=== PATIENT | female | born 1945 | race American Indian/Alaskan Native ===

== ENCOUNTER → 2017-06-21 | Outpatient (CLI) | payer MEDICARE, MEDICAID ==
[~2017-06-21] MED LIST: AMLODIPINE PO; INSU100V13 SQ; LORA10TA3 PO; METO50TA82 PO; OMEP-110 PO; RENAL VITAMIN PO; VITAMIN B12 PO
== END | disposition home or self-care (01) ==
LOC: PETCFH 09:16
PROVIDERS: ATTEND Physical Medicine & Rehabilitation Hospice and Palliative Medicine
DX: K30 Functional dyspepsia (principal); K21.9 Gastro-esophageal reflux disease without esophagitis; G89.29 Other chronic pain; R12 Heartburn; R13.19 Other dysphagia; F45.8 Other somatoform disorders; R63.4 Abnormal weight loss; I10 Essential (primary) hypertension; E11.9 Type 2 diabetes mellitus without complications; Z86.79 Personal history of other diseases of the circulatory system; Z88.8 Allergy status to other drugs, medicaments and biological substances
CPT/HCPCS: 78264; A9541

== ENCOUNTER → 2017-06-21 | Outpatient (CLI) | payer MEDICARE, MEDICAID | END | disposition home or self-care (01) | LOC: CFH 09:05 | PROVIDERS: ATTEND Physical Medicine & Rehabilitation Hospice and Palliative Medicine | DX: K83.8 Other specified diseases of biliary tract (principal); K31.89 Other diseases of stomach and duodenum | CPT/HCPCS: 74181 ==

== ENCOUNTER 2018-07-26 17:41 | Inpatient (IN) | payer MEDICAID, MEDICARE ==
[~2018-07-26] VITALS: Ht 160 cm; Wt 88.6 kg
[~2018-07-26 17:41] MED LIST changes: +ASCO500T5 PO; +ATOR10TA9 PO; +CHOL2000 PO; +FERR325T18 PO; +METO25TA35 PO; +SEVE800T8 PO
[2018-07-26] MEDS ORDERED: WARFARIN 2 MG TABLET PO-COUM ONE ×2 (18:00→23:30)
[2018-07-26] MEDS ORDERED: SODIUM CHLORIDE FLUSH 10ML SYR IVF ONE (18:30)
[2018-07-26 19:40] LABS: INTERNATIONAL NORMALIZED RATIO 1.51 (0.93-1.1); PROTHROMBIN TIME 15.6 Seconds (9.6-11.5)
[2018-07-26 19:42] LABS: ALBUMIN 1.8 g/dL (3.4-5.0); ANION GAP 13 mmol/L (5-15); CALCIUM 8.1 mg/dL (8.5-10.1); CHLORIDE 101 mmol/L (98-107)
[2018-07-26 19:49] LABS: ACETAMINOPHEN < 2 mcg/mL (10-30); ALANINE AMINOTRANSFERASE 21 U/L (12-78); ALKALINE PHOSPHATASE 158 U/L (45-117); BILIRUBIN,TOTAL 1.1 mg/dL (0.2-1.0); CREATININE 2.32 mg/dL (0.55-1.02); SALICYLATE LEVEL 2.1 mg/dL (2.8-20.0); TOTAL PROTEIN 6.1 g/dL (6.4-8.2); TROPONIN I < 0.015 ng/mL (0.000-0.045)
[2018-07-26 20:02] LABS: MEAN CORPUSCULAR HEMOGLOBIN 27.3 pg (27.0-34.8); MEAN CORPUSCULAR HGB CONC 31.9 g/dL (32.4-35.8); MEAN CORPUSCULAR VOLUME 85.6 fL (80-100); MEAN PLATELET VOLUME 8.7 fL (7.4-10.4); PLATELET COUNT 226 x10^3/uL (130-400); RED BLOOD COUNT 2.98 x10^6/uL (3.82-5.3); RED CELL DISTRIBUTION WIDTH 23.7 % (9.6-15.2)
[2018-07-26 20:04] LABS: MD YES
[2018-07-26 20:04] LABS: CULTURE INDICATED? YES; MICROSCOPIC INDICATED
[2018-07-26 20:19] LABS: MONOS% (MANUAL) 2 % (2-9)
[2018-07-26] MEDS ORDERED: CEFTRIAXONE PMX 1GM/50ML 50 ML ONE (20:21)
[2018-07-26 20:23] LABS: BANDS%(MANUAL) 2 % (0-7); LYMPHS% (MANUAL) 1 % (22-44); SEGS% (MANUAL) 95 % (42-75)
[2018-07-26 20:24] LABS: <PLATELET ESTIMATE> ADEQUATE; <PLT MORPHOLOGY> NORMAL PLT MORPH; ANISOCYTOSIS 1+; HYPOCHROMIA 1+
[2018-07-26] MEDS ORDERED: AMPICILLIN/SULBACTAM 3 GM IV ONE (20:30)
[2018-07-26] MEDS ORDERED: CEFTRIAXONE PMX 1GM/50ML 50 ML IVPB ONE (20:30)
[2018-07-26] MEDS ORDERED: VANCOMYCIN PER PHARMACY MC ONE (20:30)
[2018-07-26] MEDS ORDERED: SODIUM CHLORIDE 0.9% 1,000 ML IV SCH (20:47)
[2018-07-26] MEDS ORDERED: ACETAMINOPHEN 325 MG TABLET PO PRN (21:00)
[2018-07-26] MEDS ORDERED: POLYETHYLENE GLYCOL 17 GM PACKET PO PRN (21:00)
[2018-07-26] MEDS ORDERED: DEXTROSE 4 GM TAB.CHEW PO PRN (21:00)
[2018-07-26] MEDS ORDERED: DEXTROSE 50%, 50ML SYRINGE IVPush PRN (21:00)
[2018-07-26] MEDS ORDERED: VANCOMYCIN PER PHARMACY MC PRN (21:00)
[2018-07-26] MEDS ORDERED: DOCUSATE 100 MG CAPSULE PO PRN (21:00)
[2018-07-26] MEDS ORDERED: ONDANSETRON 2MG/ML, 2ML IVPush PRN (21:00)
[2018-07-26] MEDS ORDERED: GLUCAGON 1 MG IM PRN (21:00)
[2018-07-26] MEDS: INSULIN LISPRO 100 UNITS/ML, PEN SQ-INSULIN SCH (21:00)
[2018-07-26 21:15] VITALS: BP 92/54
[2018-07-26] MEDS: VANCOMYCIN 1,500 MG in SODIUM CHLORIDE 0.9% 250 ML IV ONE ×2 (21:55→22:06)
[2018-07-26] MEDS: SODIUM CHLORIDE FLUSH 10ML SYR IVF SCH (21:56)
[2018-07-26] MEDS ORDERED: PHARMACOKINETIC CONSULTATION MC ONE (22:30)
[2018-07-26] MEDS ORDERED: PHARMACOKINETIC MONITORING MC PRN (22:30)
[2018-07-26] MEDS: HYDROcodone/APAP 5/325 TABLET PO PRN (22:42)
[2018-07-26] MEDS: HEPARIN 5,000 UNITS/ML, 1ML SQ SCH (22:42)
[2018-07-26] MEDS: FERROUS SULFATE 325 MG TABLET PO SCH (22:42)
[2018-07-26] MEDS: FAMOTIDINE 20 MG TABLET PO SCH (22:42)
[2018-07-27 01:11] VITALS: BP 91/53
[2018-07-27] MEDS: HEPARIN 5,000 UNITS/ML, 1ML SQ SCH (05:22)
[2018-07-27 05:48] LABS: ANION GAP 15 mmol/L (5-15); CALCIUM 7.6 mg/dL (8.5-10.1); CHLORIDE 102 mmol/L (98-107); CREATININE 2.65 mg/dL (0.55-1.02)
[2018-07-27 05:49] LABS: INTERNATIONAL NORMALIZED RATIO 1.46 (0.93-1.1); PROTHROMBIN TIME 15.1 Seconds (9.6-11.5)
[2018-07-27 05:59] LABS: MEAN CORPUSCULAR HEMOGLOBIN 28.3 pg (27.0-34.8); MEAN CORPUSCULAR VOLUME 85.7 fL (80-100); PLATELET COUNT 197 x10^3/uL (130-400); RED CELL DISTRIBUTION WIDTH 22.7 % (9.6-15.2)
[2018-07-27 06:19] LABS: BASOPHILS # (AUTO) 0.02 x10^3/uL (0-0.1); BASOPHILS % (AUTO) 0 % (0-1); EOSINOPHILS # (AUTO) 0.04 x10^3/uL (0-0.4); EOSINOPHILS % (AUTO) 0 % (1-7); LYMPHOCYTES # (AUTO) 0.31 x10^3/uL (1-3.4); LYMPHOCYTES % (AUTO) 2 % (22-44); MD SCAN; MONOCYTES # (AUTO) 0.35 x10^3/uL (0.2-0.8); MONOCYTES % (AUTO) 2 % (2-9); NEUTROPHILS % (AUTO) 96 % (42-75)
[2018-07-27 06:28] LABS: CLOSTRIDIUM DIFFICILE TOXIN NEGATIVE (Negative)
[2018-07-27 06:29] LABS: CLOSTRIDIUM DIFFICILE ANTIGEN POSITIVE
[2018-07-27] MEDS: INSULIN LISPRO 100 UNITS/ML, PEN SQ-INSULIN SCH ×4 (07:00→20:44)
[2018-07-27 08:00] VITALS: BP 90/56
[2018-07-27] MEDS: SENNA/DOCUSATE TABLET PO SCH (09:00)
[2018-07-27] MEDS ORDERED: METOPROLOL TARTRATE 25 MG TABLET PO SCH (09:00)
[2018-07-27] MEDS: FERROUS SULFATE 325 MG TABLET PO SCH ×2 (09:04→17:35)
[2018-07-27] MEDS: SODIUM CHLORIDE FLUSH 10ML SYR IVF SCH ×2 (09:04→20:52)
[2018-07-27] MEDS: SEVELAMER CARBONATE 800MG TAB PO SCH ×3 (09:04→17:35)
[2018-07-27] MEDS: FAMOTIDINE 20 MG TABLET PO SCH ×2 (09:04→20:51)
[2018-07-27] MEDS ORDERED: METO50TA82 PO (12:15)
[2018-07-27] MEDS ORDERED: LORA10TA3 PO (12:15)
[2018-07-27] MEDS ORDERED: multivitamin (12:15)
[2018-07-27] MEDS ORDERED: OMEP-110 PO (12:15)
[2018-07-27] MEDS ORDERED: SEVE800T8 PO (12:15)
[2018-07-27] MEDS ORDERED: ATOR10TA9 PO (12:15)
[2018-07-27] MEDS ORDERED: AMLO5TAB7 PO (12:15)
[2018-07-27 13:03] VITALS: BP 96/57
[2018-07-27 13:24] VITALS: BP 96/57
[2018-07-27] MEDS: POTASSIUM CHLORIDE 20 MEQ in SODIUM CHLORIDE 0.45% 1,000 ML IV SCH ×2 (15:16→23:30)
[2018-07-27] MEDS ORDERED: WARFARIN 5 MG TABLET PO-COUM SCH (18:00)
[2018-07-27 20:13] VITALS: BP 92/53
[2018-07-27] MEDS: ATORVASTATIN 10 MG TABLET PO SCH (20:51)
[2018-07-27] MEDS: CEFTRIAXONE 1,000 MG in SODIUM CHLORIDE 0.9% 50 ML IV SCH (20:51)
[2018-07-27] MEDS ORDERED: CEFTRIAXONE PMX 1GM/50ML 50 ML IV SCH (21:00)
[2018-07-27 22:29] LABS: RED BLOOD COUNT 2.88 x10^6/uL (3.82-5.3)
[2018-07-27 23:25] LABS: ABSOLUTE RETICS # 0.033 x10^6/uL (0.5-2.5); RETICULOCYTE COUNT % 1.14 % (0.5-1.5)
[2018-07-28 01:40] VITALS: BP 93/56
[2018-07-28] MEDS: POTASSIUM CHLORIDE 20 MEQ in SODIUM CHLORIDE 0.45% 1,000 ML IV SCH ×2 (03:44→16:02)
[2018-07-28] MEDS: HYDROcodone/APAP 5/325 TABLET PO PRN ×3 (04:04→17:06)
[2018-07-28 05:49] LABS: MEAN CORPUSCULAR HEMOGLOBIN 27.4 pg (27.0-34.8); MEAN CORPUSCULAR HGB CONC 31.5 g/dL (32.4-35.8); MEAN CORPUSCULAR VOLUME 86.8 fL (80-100); MEAN PLATELET VOLUME 8.5 fL (7.4-10.4); PLATELET COUNT 175 x10^3/uL (130-400); RED BLOOD COUNT 2.75 x10^6/uL (3.82-5.3); RED CELL DISTRIBUTION WIDTH 23.5 % (9.6-15.2)
[2018-07-28 06:00] LABS: CHLORIDE 101 mmol/L (98-107)
[2018-07-28 06:13] LABS: ALANINE AMINOTRANSFERASE 16 U/L (12-78); ALBUMIN 1.5 g/dL (3.4-5.0); ALKALINE PHOSPHATASE 122 U/L (45-117); ANION GAP 11 mmol/L (5-15); BILIRUBIN,TOTAL 0.5 mg/dL (0.2-1.0); CALCIUM 7.5 mg/dL (8.5-10.1); CREATININE 3.46 mg/dL (0.55-1.02); TOTAL PROTEIN 5.7 g/dL (6.4-8.2)
[2018-07-28 06:38] LABS: BASOPHILS # (AUTO) 0.01 x10^3/uL (0-0.1); BASOPHILS % (AUTO) 0 % (0-1); EOSINOPHILS # (AUTO) 0.35 x10^3/uL (0-0.4); EOSINOPHILS % (AUTO) 3 % (1-7); LYMPHOCYTES % (AUTO) 3 % (22-44); MD SCAN; MONOCYTES # (AUTO) 0.41 x10^3/uL (0.2-0.8); MONOCYTES % (AUTO) 3 % (2-9); NEUTROPHILS # (AUTO) 12.76 x10^3/uL (1.8-6.8); NEUTROPHILS % (AUTO) 92 % (42-75)
[2018-07-28] MEDS: INSULIN LISPRO 100 UNITS/ML, PEN SQ-INSULIN SCH ×4 (07:00→20:07)
[2018-07-28 08:15] VITALS: BP 98/60
[2018-07-28 08:35] LABS: INTERNATIONAL NORMALIZED RATIO 3.11 (0.93-1.1); PROTHROMBIN TIME 31.6 Seconds (9.6-11.5)
[2018-07-28] MEDS: SENNA/DOCUSATE TABLET PO SCH (08:47)
[2018-07-28] MEDS: ASCORBIC ACID 500 MG TABLET PO SCH (09:01)
[2018-07-28] MEDS: SODIUM CHLORIDE FLUSH 10ML SYR IVF SCH ×2 (09:02→20:06)
[2018-07-28] MEDS: CHOLECALCIFEROL 1,000 UNIT TABLET PO SCH (09:02)
[2018-07-28] MEDS: FERROUS SULFATE 325 MG TABLET PO SCH ×2 (09:02→17:05)
[2018-07-28] MEDS: SEVELAMER CARBONATE 800MG TAB PO SCH ×3 (09:02→17:05)
[2018-07-28] MEDS: DARBEPOETIN 60 MCG/ML SQ SCH (11:00)
[2018-07-28 12:55] VITALS: BP 119/63
[2018-07-28] MEDS ORDERED: WARFARIN 1 MG TABLET PO-COUM SCH (18:00)
[2018-07-28 19:57] VITALS: BP 124/81
[2018-07-28] MEDS: morphine SULFATE 10 MG/ML, 1ML IVPush PRN (20:06)
[2018-07-28] MEDS: CEFTRIAXONE 1,000 MG in SODIUM CHLORIDE 0.9% 50 ML IV SCH (20:06)
[2018-07-28] MEDS: FAMOTIDINE 20 MG TABLET PO SCH (20:07)
[2018-07-28] MEDS: ATORVASTATIN 10 MG TABLET PO SCH (20:07)
[2018-07-29] MEDS: morphine SULFATE 10 MG/ML, 1ML IVPush PRN ×2 (00:24→04:05)
[2018-07-29] MEDS: POTASSIUM CHLORIDE 20 MEQ in SODIUM CHLORIDE 0.45% 1,000 ML IV SCH ×2 (01:34→12:32)
[2018-07-29 01:54] VITALS: BP 137/73
[2018-07-29] MEDS: HYDROcodone/APAP 5/325 TABLET PO PRN (03:58)
[2018-07-29 04:53] LABS: HCT (SEDRATE) 28.1 % (34.6-47.8)
[2018-07-29 04:55] LABS: MEAN CORPUSCULAR HEMOGLOBIN 27.5 pg (27.0-34.8); MEAN CORPUSCULAR HGB CONC 31.9 g/dL (32.4-35.8); MEAN CORPUSCULAR VOLUME 86.1 fL (80-100); MEAN PLATELET VOLUME 8.5 fL (7.4-10.4); PLATELET COUNT 198 x10^3/uL (130-400); RED CELL DISTRIBUTION WIDTH 23.4 % (9.6-15.2)
[2018-07-29 04:59] LABS: INTERNATIONAL NORMALIZED RATIO 4.45 (0.93-1.1); PROTHROMBIN TIME 44.9 Seconds (9.6-11.5)
[2018-07-29 05:54] LABS: CHLORIDE 98 mmol/L (98-107)
[2018-07-29 05:55] LABS: ALANINE AMINOTRANSFERASE 17 U/L (12-78); ANION GAP 10 mmol/L (5-15); BILIRUBIN,TOTAL 0.5 mg/dL (0.2-1.0); CALCIUM 7.9 mg/dL (8.5-10.1); CREATININE 2.26 mg/dL (0.55-1.02)
[2018-07-29 05:56] LABS: ALBUMIN 1.8 g/dL (3.4-5.0); ALKALINE PHOSPHATASE 137 U/L (45-117); TOTAL PROTEIN 6.5 g/dL (6.4-8.2)
[2018-07-29 06:34] LABS: MD YES
[2018-07-29 06:35] LABS: BAND#(MANUAL) 0.33 x10^3/uL; BANDS%(MANUAL) 2 % (0-7); SEG#(MANUAL) 16.27 x10^3/uL (1.8-6.8); SEGS% (MANUAL) 98 % (42-75)
[2018-07-29 06:36] LABS: <PLATELET ESTIMATE> ADEQUATE; <PLT MORPHOLOGY> NORMAL PLT MORPH; ANISOCYTOSIS 1+; HYPOCHROMIA 1+
[2018-07-29 07:15] VITALS: BP 114/64
[2018-07-29] MEDS: INSULIN LISPRO 100 UNITS/ML, PEN SQ-INSULIN SCH ×4 (08:46→21:50)
[2018-07-29] MEDS: FERROUS SULFATE 325 MG TABLET PO SCH ×2 (08:47→17:55)
[2018-07-29] MEDS: SODIUM CHLORIDE FLUSH 10ML SYR IVF SCH ×2 (08:48→21:46)
[2018-07-29] MEDS: SEVELAMER CARBONATE 800MG TAB PO SCH (08:48)
[2018-07-29] MEDS: SENNA/DOCUSATE TABLET PO SCH (08:48)
[2018-07-29] MEDS: ASCORBIC ACID 500 MG TABLET PO SCH (08:48)
[2018-07-29] MEDS: CHOLECALCIFEROL 1,000 UNIT TABLET PO SCH (08:48)
[2018-07-29 09:03] VITALS: BP 133/67
[2018-07-29 12:34] VITALS: BP 91/52
[2018-07-29] MEDS ORDERED: SODIUM CHLORIDE 0.9% 1,000 ML IV SCH (17:00)
[2018-07-29] MEDS: SODIUM CHLORIDE 0.9% 1,000 ML IV SCH (17:55)
[2018-07-29 19:42] VITALS: BP 110/65
[2018-07-29] MEDS: ATORVASTATIN 10 MG TABLET PO SCH (21:45)
[2018-07-29] MEDS: FAMOTIDINE 20 MG TABLET PO SCH (21:45)
[2018-07-29] MEDS: CEFTRIAXONE 1,000 MG in SODIUM CHLORIDE 0.9% 50 ML IV SCH (21:46)
[2018-07-30] MEDS: SODIUM CHLORIDE 0.9% 1,000 ML IV SCH ×2 (00:25→06:42)
[2018-07-30 03:07] VITALS: BP 124/70
[2018-07-30 05:10] LABS: MEAN CORPUSCULAR HEMOGLOBIN 27.3 pg (27.0-34.8); MEAN CORPUSCULAR HGB CONC 31.9 g/dL (32.4-35.8); MEAN CORPUSCULAR VOLUME 85.5 fL (80-100); MEAN PLATELET VOLUME 8.8 fL (7.4-10.4); PLATELET COUNT 184 x10^3/uL (130-400); RED BLOOD COUNT 2.89 x10^6/uL (3.82-5.3); RED CELL DISTRIBUTION WIDTH 24.3 % (9.6-15.2)
[2018-07-30 05:13] LABS: ALBUMIN 1.6 g/dL (3.4-5.0); ANION GAP 8 mmol/L (5-15); CALCIUM 7.4 mg/dL (8.5-10.1); CHLORIDE 100 mmol/L (98-107)
[2018-07-30 05:18] LABS: ALANINE AMINOTRANSFERASE 14 U/L (12-78); ALKALINE PHOSPHATASE 120 U/L (45-117); BILIRUBIN,TOTAL 0.5 mg/dL (0.2-1.0); CREATININE 2.91 mg/dL (0.55-1.02); INTERNATIONAL NORMALIZED RATIO 5.46 (0.93-1.1); PROTHROMBIN TIME 54.9 Seconds (9.6-11.5); TOTAL PROTEIN 5.9 g/dL (6.4-8.2)
[2018-07-30 06:18] LABS: BASOPHILS # (AUTO) 0.05 x10^3/uL (0-0.1); BASOPHILS % (AUTO) 0 % (0-1); EOSINOPHILS # (AUTO) 0.25 x10^3/uL (0-0.4); EOSINOPHILS % (AUTO) 2 % (1-7); LYMPHOCYTES # (AUTO) 0.35 x10^3/uL (1-3.4); LYMPHOCYTES % (AUTO) 3 % (22-44); MD SCAN; MONOCYTES # (AUTO) 0.29 x10^3/uL (0.2-0.8); MONOCYTES % (AUTO) 2 % (2-9); NEUTROPHILS # (AUTO) 11.41 x10^3/uL (1.8-6.8); NEUTROPHILS % (AUTO) 92 % (42-75)
[2018-07-30 06:58] VITALS: BP 121/70
[2018-07-30] MEDS: CHOLECALCIFEROL 1,000 UNIT TABLET PO SCH (08:38)
[2018-07-30] MEDS: INSULIN LISPRO 100 UNITS/ML, PEN SQ-INSULIN SCH ×4 (08:38→21:00)
[2018-07-30] MEDS: SENNA/DOCUSATE TABLET PO SCH (08:39)
[2018-07-30] MEDS: ASCORBIC ACID 500 MG TABLET PO SCH (08:39)
[2018-07-30] MEDS: FERROUS SULFATE 325 MG TABLET PO SCH ×2 (08:39→16:41)
[2018-07-30] MEDS: SODIUM CHLORIDE FLUSH 10ML SYR IVF SCH ×2 (08:40→21:32)
[2018-07-30 12:28] LABS: MEAN CORPUSCULAR HEMOGLOBIN 27.3 pg (27.0-34.8); MEAN CORPUSCULAR HGB CONC 31.8 g/dL (32.4-35.8); MEAN CORPUSCULAR VOLUME 85.7 fL (80-100); MEAN PLATELET VOLUME 8.6 fL (7.4-10.4); PLATELET COUNT 179 x10^3/uL (130-400); RED BLOOD COUNT 2.94 x10^6/uL (3.82-5.3); RED CELL DISTRIBUTION WIDTH 23.7 % (9.6-15.2)
[2018-07-30 13:00] LABS: BASOPHILS # (AUTO) 0.04 x10^3/uL (0-0.1); BASOPHILS % (AUTO) 0 % (0-1); EOSINOPHILS # (AUTO) 0.22 x10^3/uL (0-0.4); EOSINOPHILS % (AUTO) 2 % (1-7); LYMPHOCYTES % (AUTO) 3 % (22-44); MD SCAN; MONOCYTES # (AUTO) 0.35 x10^3/uL (0.2-0.8); MONOCYTES % (AUTO) 3 % (2-9); NEUTROPHILS # (AUTO) 12.29 x10^3/uL (1.8-6.8); NEUTROPHILS % (AUTO) 92 % (42-75)
[2018-07-30 15:37] VITALS: BP 126/70
[2018-07-30] MEDS ORDERED: SODIUM CHLORIDE 0.9% 1,000 ML IV SCH (17:06)
[2018-07-30 18:59] VITALS: BP 124/66
[2018-07-30] MEDS: FAMOTIDINE 20 MG TABLET PO SCH (21:32)
[2018-07-30] MEDS: CEFTRIAXONE 1,000 MG in SODIUM CHLORIDE 0.9% 50 ML IV SCH (21:32)
[2018-07-30] MEDS: ATORVASTATIN 10 MG TABLET PO SCH (21:32)
[2018-07-30] MEDS: HYDROcodone/APAP 5/325 TABLET PO PRN (21:40)
[2018-07-31 01:17] VITALS: BP 118/69
[2018-07-31 06:04] LABS: ALANINE AMINOTRANSFERASE 13 U/L (12-78); ALBUMIN 1.4 g/dL (3.4-5.0); ANION GAP 11 mmol/L (5-15); CALCIUM 7.5 mg/dL (8.5-10.1); CHLORIDE 102 mmol/L (98-107); CREATININE 3.44 mg/dL (0.55-1.02)
[2018-07-31 06:06] LABS: ALKALINE PHOSPHATASE 122 U/L (45-117); BILIRUBIN,TOTAL 0.4 mg/dL (0.2-1.0); TOTAL PROTEIN 5.9 g/dL (6.4-8.2); VANCOMYCIN,RANDOM 11.4 mcg/mL
[2018-07-31 06:19] LABS: INTERNATIONAL NORMALIZED RATIO 5.67 (0.93-1.1)
[2018-07-31 06:31] LABS: MEAN CORPUSCULAR HGB CONC 31.4 g/dL (32.4-35.8); MEAN CORPUSCULAR VOLUME 85.9 fL (80-100); MEAN PLATELET VOLUME 9.1 fL (7.4-10.4); PLATELET COUNT 189 x10^3/uL (130-400); RED BLOOD COUNT 2.85 x10^6/uL (3.82-5.3)
[2018-07-31 07:11] LABS: BASOPHILS # (AUTO) 0.03 x10^3/uL (0-0.1); BASOPHILS % (AUTO) 0 % (0-1); EOSINOPHILS # (AUTO) 0.32 x10^3/uL (0-0.4); EOSINOPHILS % (AUTO) 3 % (1-7); LYMPHOCYTES # (AUTO) 0.41 x10^3/uL (1-3.4); LYMPHOCYTES % (AUTO) 4 % (22-44); MD SCAN; MONOCYTES # (AUTO) 0.44 x10^3/uL (0.2-0.8); MONOCYTES % (AUTO) 4 % (2-9); NEUTROPHILS # (AUTO) 9.25 x10^3/uL (1.8-6.8); NEUTROPHILS % (AUTO) 89 % (42-75)
[2018-07-31] MEDS: INSULIN LISPRO 100 UNITS/ML, PEN SQ-INSULIN SCH ×4 (07:27→21:00)
[2018-07-31 07:46] VITALS: BP 111/64
[2018-07-31] MEDS: SODIUM CHLORIDE FLUSH 10ML SYR IVF SCH ×2 (09:32→21:00)
[2018-07-31] MEDS ORDERED: VANCOMYCIN 1,500 MG in SODIUM CHLORIDE 0.9% 250 ML IV ONE (11:00)
[2018-07-31] MEDS: ASCORBIC ACID 500 MG TABLET PO SCH (12:44)
[2018-07-31] MEDS: SENNA/DOCUSATE TABLET PO SCH (12:44)
[2018-07-31] MEDS: VANCOMYCIN 50 MG/ML ORAL SUSP PO SCH ×3 (12:44→23:14)
[2018-07-31] MEDS: CHOLECALCIFEROL 1,000 UNIT TABLET PO SCH (12:45)
[2018-07-31] MEDS: FERROUS SULFATE 325 MG TABLET PO SCH ×2 (12:45→17:25)
[2018-07-31 13:43] VITALS: BP 118/65
[2018-07-31] MEDS: HYDROcodone/APAP 5/325 TABLET PO PRN (14:35)
[2018-07-31 20:33] VITALS: BP 91/51
[2018-07-31] MEDS: ATORVASTATIN 10 MG TABLET PO SCH (21:56)
[2018-07-31] MEDS: CEFTRIAXONE 1,000 MG in SODIUM CHLORIDE 0.9% 50 ML IV SCH (21:56)
[2018-07-31] MEDS: FAMOTIDINE 20 MG TABLET PO SCH (21:56)
[2018-08-01 01:42] VITALS: BP 110/64
[2018-08-01] MEDS: VANCOMYCIN 50 MG/ML ORAL SUSP PO SCH ×4 (05:13→22:35)
[2018-08-01] MEDS: HYDROcodone/APAP 5/325 TABLET PO PRN ×3 (05:19→22:35)
[2018-08-01 05:32] LABS: ALBUMIN 1.5 g/dL (3.4-5.0); ANION GAP 8 mmol/L (5-15); CALCIUM 7.5 mg/dL (8.5-10.1); CHLORIDE 102 mmol/L (98-107)
[2018-08-01 05:35] LABS: ALANINE AMINOTRANSFERASE 15 U/L (12-78); ALKALINE PHOSPHATASE 135 U/L (45-117); BILIRUBIN,TOTAL 0.4 mg/dL (0.2-1.0); CREATININE 2.95 mg/dL (0.55-1.02); MEAN CORPUSCULAR HEMOGLOBIN 27.2 pg (27.0-34.8); MEAN CORPUSCULAR HGB CONC 31.5 g/dL (32.4-35.8); MEAN CORPUSCULAR VOLUME 86.5 fL (80-100); MEAN PLATELET VOLUME 9.1 fL (7.4-10.4); PLATELET COUNT 197 x10^3/uL (130-400); RED BLOOD COUNT 2.91 x10^6/uL (3.82-5.3)
[2018-08-01 05:44] LABS: INTERNATIONAL NORMALIZED RATIO 6.14 (0.93-1.1); PROTHROMBIN TIME 61.6 Seconds (9.6-11.5)
[2018-08-01 06:20] LABS: BASOPHILS # (AUTO) 0.01 x10^3/uL (0-0.1); BASOPHILS % (AUTO) 0 % (0-1); EOSINOPHILS # (AUTO) 0.33 x10^3/uL (0-0.4); EOSINOPHILS % (AUTO) 3 % (1-7); LYMPHOCYTES # (AUTO) 0.45 x10^3/uL (1-3.4); LYMPHOCYTES % (AUTO) 4 % (22-44); MD SCAN; MONOCYTES # (AUTO) 0.43 x10^3/uL (0.2-0.8); MONOCYTES % (AUTO) 4 % (2-9); NEUTROPHILS # (AUTO) 9.67 x10^3/uL (1.8-6.8); NEUTROPHILS % (AUTO) 89 % (42-75)
[2018-08-01] MEDS: INSULIN LISPRO 100 UNITS/ML, PEN SQ-INSULIN SCH ×4 (07:00→21:32)
[2018-08-01 07:22] VITALS: BP 112/69
[2018-08-01] MEDS ORDERED: HOLD COUMADIN MC PRN (08:00)
[2018-08-01] MEDS: SENNA/DOCUSATE TABLET PO SCH (09:00)
[2018-08-01] MEDS: CHOLECALCIFEROL 1,000 UNIT TABLET PO SCH (09:00)
[2018-08-01] MEDS: ASCORBIC ACID 500 MG TABLET PO SCH (09:00)
[2018-08-01] MEDS: FERROUS SULFATE 325 MG TABLET PO SCH ×2 (09:01→17:53)
[2018-08-01] MEDS: SODIUM CHLORIDE FLUSH 10ML SYR IVF SCH ×2 (09:01→21:33)
[2018-08-01] MEDS: DRONABINOL 2.5 MG CAPSULE PO SCH ×2 (10:52→21:33)
[2018-08-01 13:35] VITALS: BP 119/74
[2018-08-01 21:18] VITALS: BP 97/58
[2018-08-01] MEDS: FAMOTIDINE 20 MG TABLET PO SCH (21:32)
[2018-08-01] MEDS: ATORVASTATIN 10 MG TABLET PO SCH (21:33)
[2018-08-01] MEDS: CEFTRIAXONE 1,000 MG in SODIUM CHLORIDE 0.9% 50 ML IV SCH (21:33)
[2018-08-02 02:07] VITALS: BP 105/62
[2018-08-02] MEDS: VANCOMYCIN 50 MG/ML ORAL SUSP PO SCH ×4 (05:18→22:51)
[2018-08-02 06:18] LABS: MEAN CORPUSCULAR HGB CONC 31.4 g/dL (32.4-35.8); MEAN PLATELET VOLUME 9.1 fL (7.4-10.4); PLATELET COUNT 186 x10^3/uL (130-400); RED CELL DISTRIBUTION WIDTH 23.6 % (9.6-15.2)
[2018-08-02 06:20] LABS: ANION GAP 8 mmol/L (5-15); CALCIUM 7.5 mg/dL (8.5-10.1); CHLORIDE 104 mmol/L (98-107)
[2018-08-02 06:22] LABS: CREATININE 3.95 mg/dL (0.55-1.02)
[2018-08-02 06:38] LABS: BASOPHILS % (AUTO) 0 % (0-1); EOSINOPHILS # (AUTO) 0.34 x10^3/uL (0-0.4); EOSINOPHILS % (AUTO) 3 % (1-7); LYMPHOCYTES # (AUTO) 0.55 x10^3/uL (1-3.4); LYMPHOCYTES % (AUTO) 5 % (22-44); MD SCAN; MONOCYTES # (AUTO) 0.53 x10^3/uL (0.2-0.8); MONOCYTES % (AUTO) 5 % (2-9); NEUTROPHILS # (AUTO) 9.97 x10^3/uL (1.8-6.8); NEUTROPHILS % (AUTO) 88 % (42-75)
[2018-08-02 06:49] LABS: INTERNATIONAL NORMALIZED RATIO 4.69 (0.93-1.1); PROTHROMBIN TIME 47.3 Seconds (9.6-11.5)
[2018-08-02 07:55] VITALS: BP 112/68
[2018-08-02] MEDS ORDERED: HOLD COUMADIN MC PRN (08:00)
[2018-08-02] MEDS: SENNA/DOCUSATE TABLET PO SCH (09:00)
[2018-08-02] MEDS: INSULIN LISPRO 100 UNITS/ML, PEN SQ-INSULIN SCH ×4 (09:07→20:50)
[2018-08-02] MEDS: DRONABINOL 2.5 MG CAPSULE PO SCH ×2 (09:08→20:49)
[2018-08-02] MEDS: CHOLECALCIFEROL 1,000 UNIT TABLET PO SCH (09:08)
[2018-08-02] MEDS: FERROUS SULFATE 325 MG TABLET PO SCH ×2 (09:08→17:45)
[2018-08-02] MEDS: SODIUM CHLORIDE FLUSH 10ML SYR IVF SCH ×2 (09:08→20:50)
[2018-08-02] MEDS: ASCORBIC ACID 500 MG TABLET PO SCH (09:08)
[2018-08-02] MEDS: HYDROcodone/APAP 5/325 TABLET PO PRN ×3 (09:08→22:51)
[2018-08-02] MEDS ORDERED: PHYTONADIONE 10 MG/ML, 1ML SQ ONE (14:00)
[2018-08-02 14:04] VITALS: BP 118/72
[2018-08-02 20:25] VITALS: BP 95/57
[2018-08-02] MEDS: FAMOTIDINE 20 MG TABLET PO SCH (20:49)
[2018-08-02] MEDS: ATORVASTATIN 10 MG TABLET PO SCH (20:49)
[2018-08-03 01:48] VITALS: BP 91/55
[2018-08-03] MEDS: VANCOMYCIN 50 MG/ML ORAL SUSP PO SCH ×3 (05:09→17:42)
[2018-08-03 06:07] LABS: INTERNATIONAL NORMALIZED RATIO 2.1 (0.93-1.1); PROTHROMBIN TIME 21.5 Seconds (9.6-11.5)
[2018-08-03 06:11] LABS: ANION GAP 7 mmol/L (5-15); CALCIUM 7.5 mg/dL (8.5-10.1); CHLORIDE 102 mmol/L (98-107); CREATININE 3.47 mg/dL (0.55-1.02)
[2018-08-03 06:18] LABS: MEAN CORPUSCULAR HEMOGLOBIN 26.4 pg (27.0-34.8); MEAN CORPUSCULAR HGB CONC 30.6 g/dL (32.4-35.8); MEAN CORPUSCULAR VOLUME 86.2 fL (80-100); MEAN PLATELET VOLUME 8.9 fL (7.4-10.4); PLATELET COUNT 181 x10^3/uL (130-400); RED BLOOD COUNT 2.73 x10^6/uL (3.82-5.3); RED CELL DISTRIBUTION WIDTH 23.7 % (9.6-15.2)
[2018-08-03 07:38] VITALS: BP 129/67
[2018-08-03 07:58] LABS: BASOPHILS # (AUTO) 0.03 x10^3/uL (0-0.1); BASOPHILS % (AUTO) 0 % (0-1); EOSINOPHILS # (AUTO) 0.29 x10^3/uL (0-0.4); EOSINOPHILS % (AUTO) 3 % (1-7); LYMPHOCYTES # (AUTO) 0.51 x10^3/uL (1-3.4); LYMPHOCYTES % (AUTO) 5 % (22-44); MD MORPH REVIEW ONLY; MONOCYTES # (AUTO) 0.43 x10^3/uL (0.2-0.8); MONOCYTES % (AUTO) 4 % (2-9); NEUTROPHILS # (AUTO) 9.89 x10^3/uL (1.8-6.8); NEUTROPHILS % (AUTO) 89 % (42-75)
[2018-08-03 08:17] LABS: ANISOCYTOSIS 1+
[2018-08-03 08:18] LABS: <PLATELET ESTIMATE> ADEQUATE; <PLT MORPHOLOGY> NORMAL PLT MORPH; HYPOCHROMIA 1+; MICROCYTOSIS 1+; OVALOCYTES 1+
[2018-08-03] MEDS ORDERED: LIDOCAINE-MPF 2%, 2ML ONE (08:54)
[2018-08-03] MEDS ORDERED: VISIPAQUE 270 MG/ML, 50ML BOTTLE ONE (09:00)
[2018-08-03] MEDS ORDERED: FENTANYL PF 100 MCG/2ML ONE (09:18)
[2018-08-03] MEDS ORDERED: MIDAZOLAM 1 MG/ML, 5ML ONE (09:18)
[2018-08-03] MEDS ORDERED: NALOXONE 1 MG/ML, 2ML ONE (09:19)
[2018-08-03] MEDS ORDERED: NITROGLYCERIN 5 MG/ML, 10ML ONE (09:19)
[2018-08-03] MEDS ORDERED: FLUMAZENIL 0.1 MG/1 ML, 5ML ONE (09:19)
[2018-08-03] MEDS ORDERED: PROTAMINE SULFATE 10 MG/ML, 25ML ONE (09:19)
[2018-08-03] MEDS ORDERED: HEPARIN 1,000 UNITS/ML, 10ML ONE (09:19)
[2018-08-03] MEDS: INSULIN LISPRO 100 UNITS/ML, PEN SQ-INSULIN SCH ×4 (09:20→22:11)
[2018-08-03] MEDS: SENNA/DOCUSATE TABLET PO SCH (09:21)
[2018-08-03] MEDS: FERROUS SULFATE 325 MG TABLET PO SCH ×2 (09:21→16:02)
[2018-08-03] MEDS: DRONABINOL 2.5 MG CAPSULE PO SCH ×2 (09:21→22:11)
[2018-08-03] MEDS: ASCORBIC ACID 500 MG TABLET PO SCH (12:55)
[2018-08-03] MEDS: CHOLECALCIFEROL 1,000 UNIT TABLET PO SCH (12:55)
[2018-08-03] MEDS: SODIUM CHLORIDE FLUSH 10ML SYR IVF SCH ×2 (13:00→22:11)
[2018-08-03 13:39] VITALS: BP 110/62
[2018-08-03] MEDS: HYDROcodone/APAP 5/325 TABLET PO PRN (16:02)
[2018-08-03] MEDS ORDERED: WARFARIN 2 MG TABLET PO-COUM ONE (18:00)
[2018-08-03] MEDS ORDERED: VANCOMYCIN 1,500 MG in SODIUM CHLORIDE 0.9% 250 ML IV SCH (18:30)
[2018-08-03] MEDS ORDERED: [UNRECOGNIZED DRUG - REMARK] MC PRN (19:00)
[2018-08-03 20:56] VITALS: BP 93/51
[2018-08-03] MEDS: DARBEPOETIN 60 MCG/ML SQ SCH (22:10)
[2018-08-03] MEDS: FAMOTIDINE 20 MG TABLET PO SCH (22:11)
[2018-08-03] MEDS: ATORVASTATIN 10 MG TABLET PO SCH (22:11)
[2018-08-04] MEDS: VANCOMYCIN 50 MG/ML ORAL SUSP PO SCH ×5 (00:01→23:45)
[2018-08-04 02:10] VITALS: BP 125/63
[2018-08-04 05:51] LABS: BASOPHILS # (AUTO) 0.01 x10^3/uL (0-0.1); BASOPHILS % (AUTO) 0 % (0-1); EOSINOPHILS # (AUTO) 0.31 x10^3/uL (0-0.4); EOSINOPHILS % (AUTO) 4 % (1-7); LYMPHOCYTES # (AUTO) 0.42 x10^3/uL (1-3.4); LYMPHOCYTES % (AUTO) 5 % (22-44); MD NO; MEAN CORPUSCULAR HEMOGLOBIN 26.7 pg (27.0-34.8); MEAN CORPUSCULAR VOLUME 86.2 fL (80-100); MEAN PLATELET VOLUME 9.3 fL (7.4-10.4); MONOCYTES # (AUTO) 0.43 x10^3/uL (0.2-0.8); MONOCYTES % (AUTO) 5 % (2-9); NEUTROPHILS # (AUTO) 7.47 x10^3/uL (1.8-6.8); NEUTROPHILS % (AUTO) 87 % (42-75); PLATELET COUNT 195 x10^3/uL (130-400); RED CELL DISTRIBUTION WIDTH 24.4 % (9.6-15.2)
[2018-08-04 05:59] LABS: ANION GAP 9 mmol/L (5-15); CALCIUM 7.8 mg/dL (8.5-10.1); CHLORIDE 104 mmol/L (98-107)
[2018-08-04 06:03] LABS: INTERNATIONAL NORMALIZED RATIO 1.38 (0.93-1.1); PROTHROMBIN TIME 14.3 Seconds (9.6-11.5)
[2018-08-04 08:33] VITALS: BP 136/67
[2018-08-04] MEDS: INSULIN LISPRO 100 UNITS/ML, PEN SQ-INSULIN SCH ×4 (09:10→20:45)
[2018-08-04] MEDS: SODIUM CHLORIDE FLUSH 10ML SYR IVF SCH ×2 (09:10→20:47)
[2018-08-04] MEDS: CHOLECALCIFEROL 1,000 UNIT TABLET PO SCH (09:11)
[2018-08-04] MEDS: FERROUS SULFATE 325 MG TABLET PO SCH ×2 (09:11→18:23)
[2018-08-04] MEDS: ASCORBIC ACID 500 MG TABLET PO SCH (09:11)
[2018-08-04] MEDS: DRONABINOL 2.5 MG CAPSULE PO SCH ×2 (09:11→20:45)
[2018-08-04] MEDS: SENNA/DOCUSATE TABLET PO SCH (09:11)
[2018-08-04] MEDS: HYDROcodone/APAP 5/325 TABLET PO PRN (12:25)
[2018-08-04 14:32] VITALS: BP 119/61
[2018-08-04] MEDS ORDERED: WARFARIN 2 MG TABLET PO-COUM ONE (18:00)
[2018-08-04] MEDS: FAMOTIDINE 20 MG TABLET PO SCH (20:44)
[2018-08-04] MEDS: ATORVASTATIN 10 MG TABLET PO SCH (20:45)
[2018-08-04 21:01] VITALS: BP 112/64
[2018-08-05] VITALS (10 sets, daily range): BP systolic 93–143; BP diastolic 52–76
[2018-08-05 05:08] LABS: INTERNATIONAL NORMALIZED RATIO 1.56 (0.93-1.1); PROTHROMBIN TIME 16.1 Seconds (9.6-11.5)
[2018-08-05 05:13] LABS: ANION GAP 9 mmol/L (5-15); CALCIUM 7.7 mg/dL (8.5-10.1); CHLORIDE 104 mmol/L (98-107); CREATININE 3.23 mg/dL (0.55-1.02)
[2018-08-05 05:16] LABS: MEAN CORPUSCULAR HEMOGLOBIN 27.1 pg (27.0-34.8); MEAN CORPUSCULAR HGB CONC 31.5 g/dL (32.4-35.8); MEAN CORPUSCULAR VOLUME 85.8 fL (80-100); MEAN PLATELET VOLUME 9.5 fL (7.4-10.4); PLATELET COUNT 220 x10^3/uL (130-400); RED BLOOD COUNT 2.52 x10^6/uL (3.82-5.3); RED CELL DISTRIBUTION WIDTH 24.5 % (9.6-15.2)
[2018-08-05 05:44] LABS: BASOPHILS # (AUTO) 0.03 x10^3/uL (0-0.1); BASOPHILS % (AUTO) 0 % (0-1); EOSINOPHILS # (AUTO) 0.24 x10^3/uL (0-0.4); EOSINOPHILS % (AUTO) 2 % (1-7); LYMPHOCYTES # (AUTO) 0.41 x10^3/uL (1-3.4); LYMPHOCYTES % (AUTO) 4 % (22-44); MD SCAN; MONOCYTES # (AUTO) 0.42 x10^3/uL (0.2-0.8); MONOCYTES % (AUTO) 4 % (2-9); NEUTROPHILS # (AUTO) 8.57 x10^3/uL (1.8-6.8); NEUTROPHILS % (AUTO) 89 % (42-75)
[2018-08-05] MEDS: VANCOMYCIN 50 MG/ML ORAL SUSP PO SCH ×3 (06:37→17:03)
[2018-08-05] MEDS: HYDROcodone/APAP 5/325 TABLET PO PRN (07:04)
[2018-08-05] MEDS: DRONABINOL 2.5 MG CAPSULE PO SCH ×2 (09:04→20:57)
[2018-08-05] MEDS: CHOLECALCIFEROL 1,000 UNIT TABLET PO SCH (09:04)
[2018-08-05] MEDS: INSULIN LISPRO 100 UNITS/ML, PEN SQ-INSULIN SCH ×4 (09:04→20:56)
[2018-08-05] MEDS: FERROUS SULFATE 325 MG TABLET PO SCH ×2 (09:04→17:03)
[2018-08-05] MEDS: ASCORBIC ACID 500 MG TABLET PO SCH (09:04)
[2018-08-05] MEDS: SODIUM CHLORIDE FLUSH 10ML SYR IVF SCH ×2 (09:05→20:56)
[2018-08-05] MEDS: SENNA/DOCUSATE TABLET PO SCH (09:05)
[2018-08-05 16:25] LABS: OCCULT BLOOD NEGATIVE (NEGATIVE)
[2018-08-05] MEDS ORDERED: WARFARIN 2 MG TABLET PO-COUM ONE (18:00)
[2018-08-05] MEDS: FAMOTIDINE 20 MG TABLET PO SCH (20:57)
[2018-08-05] MEDS: ATORVASTATIN 10 MG TABLET PO SCH (20:57)
[2018-08-06] MEDS: VANCOMYCIN 50 MG/ML ORAL SUSP PO SCH ×5 (00:36→23:44)
[2018-08-06 00:54] VITALS: BP 110/50
[2018-08-06 01:02] LABS: OCCULT BLOOD POSITIVE (NEGATIVE)
[2018-08-06 06:07] LABS: MEAN CORPUSCULAR HEMOGLOBIN 27.6 pg (27.0-34.8); MEAN CORPUSCULAR HGB CONC 31.8 g/dL (32.4-35.8); MEAN CORPUSCULAR VOLUME 86.7 fL (80-100); PLATELET COUNT 227 x10^3/uL (130-400); RED BLOOD COUNT 2.63 x10^6/uL (3.82-5.3); RED CELL DISTRIBUTION WIDTH 23.7 % (9.6-15.2)
[2018-08-06 06:11] LABS: ANION GAP 9 mmol/L (5-15); CALCIUM 7.8 mg/dL (8.5-10.1); CHLORIDE 104 mmol/L (98-107)
[2018-08-06 06:12] LABS: ALBUMIN 1.6 g/dL (3.4-5.0); CREATININE 3.85 mg/dL (0.55-1.02)
[2018-08-06 06:17] LABS: INTERNATIONAL NORMALIZED RATIO 2.06 (0.93-1.1); PROTHROMBIN TIME 21.1 Seconds (9.6-11.5)
[2018-08-06 06:45] LABS: BASOPHILS # (AUTO) 0.03 x10^3/uL (0-0.1); BASOPHILS % (AUTO) 0 % (0-1); EOSINOPHILS # (AUTO) 0.24 x10^3/uL (0-0.4); EOSINOPHILS % (AUTO) 3 % (1-7); LYMPHOCYTES # (AUTO) 0.36 x10^3/uL (1-3.4); LYMPHOCYTES % (AUTO) 4 % (22-44); MD SCAN; MONOCYTES # (AUTO) 0.43 x10^3/uL (0.2-0.8); MONOCYTES % (AUTO) 5 % (2-9); NEUTROPHILS # (AUTO) 8.36 x10^3/uL (1.8-6.8); NEUTROPHILS % (AUTO) 89 % (42-75)
[2018-08-06 07:03] VITALS: BP 112/56
[2018-08-06] MEDS: SODIUM CHLORIDE FLUSH 10ML SYR IVF SCH ×2 (08:33→20:32)
[2018-08-06] MEDS: INSULIN LISPRO 100 UNITS/ML, PEN SQ-INSULIN SCH ×5 (08:34→20:34)
[2018-08-06] MEDS: ASCORBIC ACID 500 MG TABLET PO SCH (08:34)
[2018-08-06] MEDS: DRONABINOL 2.5 MG CAPSULE PO SCH ×2 (08:34→20:33)
[2018-08-06] MEDS: FERROUS SULFATE 325 MG TABLET PO SCH ×2 (08:34→17:25)
[2018-08-06] MEDS: SENNA/DOCUSATE TABLET PO SCH (08:34)
[2018-08-06] MEDS: CHOLECALCIFEROL 1,000 UNIT TABLET PO SCH (08:34)
[2018-08-06] MEDS: PANTOPRAZOLE 40 MG IV IVPush SCH ×2 (11:19→20:32)
[2018-08-06 12:28] VITALS: BP 115/63
[2018-08-06 15:21] LABS: OCCULT BLOOD POSITIVE (NEGATIVE)
[2018-08-06] MEDS ORDERED: WARFARIN 3 MG TABLET PO-COUM ONE (18:00)
[2018-08-06 20:18] VITALS: BP 107/65
[2018-08-06] MEDS: ATORVASTATIN 10 MG TABLET PO SCH (20:33)
[2018-08-07 01:11] VITALS: BP 125/65
[2018-08-07] MEDS: VANCOMYCIN 50 MG/ML ORAL SUSP PO SCH ×3 (05:42→17:44)
[2018-08-07 05:53] LABS: MEAN CORPUSCULAR HEMOGLOBIN 27.4 pg (27.0-34.8); MEAN CORPUSCULAR HGB CONC 31.8 g/dL (32.4-35.8); MEAN CORPUSCULAR VOLUME 86.3 fL (80-100); MEAN PLATELET VOLUME 9.5 fL (7.4-10.4); PLATELET COUNT 210 x10^3/uL (130-400); RED BLOOD COUNT 2.73 x10^6/uL (3.82-5.3); RED CELL DISTRIBUTION WIDTH 24.6 % (9.6-15.2)
[2018-08-07 05:58] LABS: ALBUMIN 1.6 g/dL (3.4-5.0); ANION GAP 8 mmol/L (5-15); CALCIUM 8.3 mg/dL (8.5-10.1); CHLORIDE 103 mmol/L (98-107); CREATININE 4.45 mg/dL (0.55-1.02)
[2018-08-07 06:09] LABS: INTERNATIONAL NORMALIZED RATIO 2.66 (0.93-1.1); PROTHROMBIN TIME 26.9 Seconds (9.6-11.5)
[2018-08-07 06:21] LABS: HCT (SEDRATE) 23.5 % (34.6-47.8)
[2018-08-07 06:30] LABS: BASOPHILS # (AUTO) 0.02 x10^3/uL (0-0.1); BASOPHILS % (AUTO) 0 % (0-1); EOSINOPHILS # (AUTO) 0.32 x10^3/uL (0-0.4); EOSINOPHILS % (AUTO) 3 % (1-7); LYMPHOCYTES # (AUTO) 0.41 x10^3/uL (1-3.4); LYMPHOCYTES % (AUTO) 4 % (22-44); MONOCYTES # (AUTO) 0.41 x10^3/uL (0.2-0.8); MONOCYTES % (AUTO) 4 % (2-9); NEUTROPHILS # (AUTO) 8.28 x10^3/uL (1.8-6.8); NEUTROPHILS % (AUTO) 88 % (42-75)
[2018-08-07 06:33] LABS: MD SCAN
[2018-08-07 06:42] VITALS: BP 117/62
[2018-08-07] MEDS: INSULIN LISPRO 100 UNITS/ML, PEN SQ-INSULIN SCH ×4 (07:00→21:10)
[2018-08-07] MEDS: SENNA/DOCUSATE TABLET PO SCH (09:00)
[2018-08-07] MEDS: ASCORBIC ACID 500 MG TABLET PO SCH (09:19)
[2018-08-07] MEDS: PANTOPRAZOLE 40 MG IV IVPush SCH ×2 (09:19→21:10)
[2018-08-07] MEDS: CHOLECALCIFEROL 1,000 UNIT TABLET PO SCH (09:19)
[2018-08-07] MEDS: FERROUS SULFATE 325 MG TABLET PO SCH ×2 (09:19→17:44)
[2018-08-07] MEDS: DRONABINOL 2.5 MG CAPSULE PO SCH ×2 (09:19→21:10)
[2018-08-07] MEDS: SODIUM CHLORIDE FLUSH 10ML SYR IVF SCH ×2 (09:20→21:10)
[2018-08-07] MEDS: HYDROcodone/APAP 5/325 TABLET PO PRN (12:21)
[2018-08-07 12:34] VITALS: BP 144/60
[2018-08-07 20:14] VITALS: BP 119/52
[2018-08-07] MEDS: ATORVASTATIN 10 MG TABLET PO SCH (21:10)
[2018-08-08] MEDS: VANCOMYCIN 50 MG/ML ORAL SUSP PO SCH ×4 (00:02→18:48)
[2018-08-08] MEDS: HYDROcodone/APAP 5/325 TABLET PO PRN ×2 (00:07→04:25)
[2018-08-08 00:10] VITALS: BP 133/56
[2018-08-08 05:43] LABS: INTERNATIONAL NORMALIZED RATIO 2.49 (0.93-1.1); PROTHROMBIN TIME 25.2 Seconds (9.6-11.5)
[2018-08-08 05:44] LABS: BASOPHILS # (AUTO) 0.03 x10^3/uL (0-0.1); BASOPHILS % (AUTO) 0 % (0-1); EOSINOPHILS # (AUTO) 0.21 x10^3/uL (0-0.4); EOSINOPHILS % (AUTO) 2 % (1-7); LYMPHOCYTES # (AUTO) 0.49 x10^3/uL (1-3.4); LYMPHOCYTES % (AUTO) 5 % (22-44); MD NO; MEAN CORPUSCULAR HEMOGLOBIN 28.1 pg (27.0-34.8); MEAN CORPUSCULAR HGB CONC 32.3 g/dL (32.4-35.8); MEAN CORPUSCULAR VOLUME 86.9 fL (80-100); MEAN PLATELET VOLUME 10.3 fL (7.4-10.4); MONOCYTES # (AUTO) 0.39 x10^3/uL (0.2-0.8); MONOCYTES % (AUTO) 4 % (2-9); NEUTROPHILS # (AUTO) 8.23 x10^3/uL (1.8-6.8); NEUTROPHILS % (AUTO) 88 % (42-75); PLATELET COUNT 250 x10^3/uL (130-400); RED BLOOD COUNT 2.67 x10^6/uL (3.82-5.3); RED CELL DISTRIBUTION WIDTH 24.6 % (9.6-15.2)
[2018-08-08 05:54] LABS: ANION GAP 7 mmol/L (5-15); CALCIUM 7.9 mg/dL (8.5-10.1); CHLORIDE 102 mmol/L (98-107); CREATININE 3.39 mg/dL (0.55-1.02)
[2018-08-08 06:43] VITALS: BP 134/62
[2018-08-08] MEDS: INSULIN LISPRO 100 UNITS/ML, PEN SQ-INSULIN SCH ×4 (07:00→21:16)
[2018-08-08] MEDS: SENNA/DOCUSATE TABLET PO SCH (09:00)
[2018-08-08] MEDS: SODIUM CHLORIDE FLUSH 10ML SYR IVF SCH ×2 (09:00→21:18)
[2018-08-08] MEDS: FERROUS SULFATE 325 MG TABLET PO SCH ×2 (09:53→16:34)
[2018-08-08] MEDS: PANTOPRAZOLE 40 MG IV IVPush SCH ×2 (09:53→21:15)
[2018-08-08] MEDS: ASCORBIC ACID 500 MG TABLET PO SCH (09:53)
[2018-08-08] MEDS: DRONABINOL 2.5 MG CAPSULE PO SCH ×2 (09:53→21:16)
[2018-08-08] MEDS: CHOLECALCIFEROL 1,000 UNIT TABLET PO SCH (09:53)
[2018-08-08 12:41] VITALS: BP 121/63
[2018-08-08 19:15] VITALS: BP 101/58
[2018-08-08] MEDS: ATORVASTATIN 10 MG TABLET PO SCH (21:15)
[2018-08-09] MEDS: VANCOMYCIN 50 MG/ML ORAL SUSP PO SCH ×4 (00:55→17:21)
[2018-08-09 01:55] VITALS: BP 127/65
[2018-08-09] MEDS: HYDROcodone/APAP 5/325 TABLET PO PRN ×2 (02:11→12:32)
[2018-08-09 06:18] LABS: INTERNATIONAL NORMALIZED RATIO 2.64 (0.93-1.1); PROTHROMBIN TIME 26.7 Seconds (9.6-11.5)
[2018-08-09 07:43] VITALS: BP 131/63
[2018-08-09] MEDS: INSULIN LISPRO 100 UNITS/ML, PEN SQ-INSULIN SCH ×4 (08:00→21:12)
[2018-08-09] MEDS: SODIUM CHLORIDE FLUSH 10ML SYR IVF SCH ×2 (09:00→21:12)
[2018-08-09] MEDS: SENNA/DOCUSATE TABLET PO SCH (09:00)
[2018-08-09] MEDS: PANTOPRAZOLE 40 MG IV IVPush SCH ×2 (12:32→21:12)
[2018-08-09] MEDS: FERROUS SULFATE 325 MG TABLET PO SCH ×2 (12:32→17:21)
[2018-08-09] MEDS: CHOLECALCIFEROL 1,000 UNIT TABLET PO SCH (12:32)
[2018-08-09] MEDS: DRONABINOL 2.5 MG CAPSULE PO SCH ×2 (12:33→23:19)
[2018-08-09] MEDS: ASCORBIC ACID 500 MG TABLET PO SCH (12:33)
[2018-08-09 13:50] VITALS: BP 128/67
[2018-08-09] MEDS ORDERED: VANCOMYCIN 1,500 MG in SODIUM CHLORIDE 0.9% 250 ML IVPB ONE (14:00)
[2018-08-09 20:18] VITALS: BP 76/40
[2018-08-09 21:03] VITALS: BP 74/38
[2018-08-09] MEDS: ATORVASTATIN 10 MG TABLET PO SCH (21:12)
[2018-08-09] MEDS ORDERED: SODIUM CHLORIDE 0.9%, 250ML IVBOLUS ONE (21:30)
[2018-08-09 22:10] VITALS: BP 80/38
[2018-08-10 00:03] VITALS: BP 107/61
[2018-08-10] MEDS: VANCOMYCIN 50 MG/ML ORAL SUSP PO SCH ×3 (00:04→11:59)
[2018-08-10 05:40] VITALS: BP 120/56
[2018-08-10] MEDS: HYDROcodone/APAP 5/325 TABLET PO PRN ×2 (05:42→09:47)
[2018-08-10 05:45] LABS: INTERNATIONAL NORMALIZED RATIO 2.32 (0.93-1.1); PROTHROMBIN TIME 23.5 Seconds (9.6-11.5)
[2018-08-10 06:55] VITALS: BP 118/67
[2018-08-10] MEDS: FERROUS SULFATE 325 MG TABLET PO SCH (08:55)
[2018-08-10] MEDS: PANTOPRAZOLE 40 MG IV IVPush SCH (08:55)
[2018-08-10] MEDS: ASCORBIC ACID 500 MG TABLET PO SCH (08:55)
[2018-08-10] MEDS: CHOLECALCIFEROL 1,000 UNIT TABLET PO SCH (08:56)
[2018-08-10] MEDS: SODIUM CHLORIDE FLUSH 10ML SYR IVF SCH (08:56)
[2018-08-10] MEDS: INSULIN LISPRO 100 UNITS/ML, PEN SQ-INSULIN SCH ×2 (08:56→12:00)
[2018-08-10] MEDS: DRONABINOL 2.5 MG CAPSULE PO SCH (08:56)
[2018-08-10] MEDS: SENNA/DOCUSATE TABLET PO SCH (08:57)
[2018-08-10] MEDS ORDERED: INSU100I11 SQ-INSULIN (11:06)
[2018-08-10] MEDS ORDERED: ACET325T14 PO (11:06)
[2018-08-10] MEDS ORDERED: DRON2.5C2 PO (11:06)
[2018-08-10] MEDS ORDERED: [UNRECOGNIZED DRUG - CODE] IV (11:06)
[2018-08-10] MEDS ORDERED: PANT40VI IVPush (11:06)
[2018-08-10] MEDS ORDERED: HYDR-3240 PO (11:06)
[2018-08-10] MEDS ORDERED: VANC1VIA3 PO (11:06)
== END 2018-08-10 14:54 | DRG 853 ==
LOC: SUATTDRO 20:34 → ED 20:34 → EDIP 21:21 → 3NE 21:52 → 4EST 07-29 07:49
PROVIDERS: ADMIT Family Medicine; ATTEND Family Medicine
PROC: 5A1D70Z Performance of Urinary Filtration, Intermittent, Less than 6 Hours Per Day (ICD-10-PCS; principal; 2018-07-28)
PROC: 5A1D70Z Performance of Urinary Filtration, Intermittent, Less than 6 Hours Per Day (ICD-10-PCS; 2018-07-31)
PROC: 5A1D70Z Performance of Urinary Filtration, Intermittent, Less than 6 Hours Per Day (ICD-10-PCS; 2018-08-02)
PROC: 03773ZZ Dilation of Right Brachial Artery, Percutaneous Approach (ICD-10-PCS; 2018-08-03)
PROC: 5A1D70Z Performance of Urinary Filtration, Intermittent, Less than 6 Hours Per Day (ICD-10-PCS; 2018-08-04)
PROC: 0T9B70Z Drainage of Bladder with Drainage Device, Via Natural or Artificial Opening (ICD-10-PCS; 2018-08-05)
PROC: 30233N1 Transfusion of Nonautologous Red Blood Cells into Peripheral Vein, Percutaneous Approach (ICD-10-PCS; 2018-08-05)
PROC: 5A1D70Z Performance of Urinary Filtration, Intermittent, Less than 6 Hours Per Day (ICD-10-PCS; 2018-08-07)
PROC: 5A1D70Z Performance of Urinary Filtration, Intermittent, Less than 6 Hours Per Day (ICD-10-PCS; 2018-08-09)
DX: A41.9 Sepsis, unspecified organism (principal); G93.41 Metabolic encephalopathy; E43 Unspecified severe protein-calorie malnutrition; N18.6 End stage renal disease; I12.0 Hypertensive chronic kidney disease with stage 5 chronic kidney disease or end stage renal disease; D68.69 Other thrombophilia; A04.72 Enterocolitis due to Clostridium difficile, not specified as recurrent; I13.2 Hypertensive heart and chronic kidney disease with heart failure and with stage 5 chronic kidney disease, or end stage renal disease; T82.858A Stenosis of other vascular prosthetic devices, implants and grafts, initial encounter; Z79.01 Long term (current) use of anticoagulants; Z99.2 Dependence on renal dialysis; I48.91 Unspecified atrial fibrillation; E11.22 Type 2 diabetes mellitus with diabetic chronic kidney disease; E11.65 Type 2 diabetes mellitus with hyperglycemia; D63.1 Anemia in chronic kidney disease; E11.40 Type 2 diabetes mellitus with diabetic neuropathy, unspecified; K21.9 Gastro-esophageal reflux disease without esophagitis; Z68.34 Body mass index [BMI] 34.0-34.9, adult; B95.62 Methicillin resistant Staphylococcus aureus infection as the cause of diseases classified elsewhere; B96.89 Other specified bacterial agents as the cause of diseases classified elsewhere; E83.51 Hypocalcemia; E78.5 Hyperlipidemia, unspecified; E87.6 Hypokalemia; I25.10 Atherosclerotic heart disease of native coronary artery without angina pectoris; I35.8 Other nonrheumatic aortic valve disorders; I48.2 Chronic atrial fibrillation; I50.9 Heart failure, unspecified; M85.80 Other specified disorders of bone density and structure, unspecified site; N25.0 Renal osteodystrophy; N30.90 Cystitis, unspecified without hematuria; R65.20 Severe sepsis without septic shock; S20.212A Contusion of left front wall of thorax, initial encounter; S40.019A Contusion of unspecified shoulder, initial encounter; S42.002A Fracture of unspecified part of left clavicle, initial encounter for closed fracture; Y83.2 Surgical operation with anastomosis, bypass or graft as the cause of abnormal reaction of the patient, or of later complication, without mention of misadventure at the time of the procedure; I25.2 Old myocardial infarction; Z22.1 Carrier of other intestinal infectious diseases; Z79.4 Long term (current) use of insulin; Z83.3 Family history of diabetes mellitus; Z86.718 Personal history of other venous thrombosis and embolism
CPT/HCPCS: 36415; 36902; 70450; 71045; 71260; 76604; 76937; 80048; 80053; 80069; 80202; 80307; 80329; 81001; 82140; 82272; 82306; 82310; 82728; 82962; 83540; 83550; 83605; 83735; 83970; 84100; 84484; 85025; 85045; 85610; 85651; 86140; 86704; 86706; 86850; 86900; 86923; 87040; 87077; 87086; 87147; 87186; 87324; 87340; 87493; 93005; 93306; 93990; 99156; 99157; 99285; C1725; C1894; G0378; J0696; J0881; J1644; J2250; J2720; J3010; J3370; J3430; J3480; J3490; Q0167; Q9966; C1751; C1769; C9113; G0480; J1815; J2270; J2310; J7030; J7050; P9016

== ENCOUNTER 2020-07-17 23:36 | Observation (INO) | payer MEDICAID, MEDICARE ==
[~2020-07-17] VITALS: Ht 160 cm; Wt 72.1 kg
[~2020-07-17 23:36] MED LIST changes: +ACET325T14 PO; +AMLO-150 PO; +AMOX1TAB12 PO; -ASCO500T5 PO; +ASCO500T56 PO; +DOCU-131 PO; +DRON2.5C2 PO; +GLYB5TAB3 PO; +HYDR-3240 PO; +INSU100C5 SQ-INSULIN; +INSU100I11 SQ-INSULIN; +LISI-167 PO; +LORA-247 PO; -LORA10TA3 PO; +METO5TAB2 PO; +NPH,100V5 SQ-INSULIN; +ONDA4TAB7 PO; +PANT40VI IVPush; +SEVE800T7 PO; +VANC1.5P17 IV; +VANC1VIA3 PO; +multivitamin
--- NOTE | 2020-07-17 23:49 | NUR ---
THIS TECH DID EKG
--- NOTE | 2020-07-18 00:10 | NUR ---
pt reports hx of htn, states she vomited up her doses today, cardizem and metoprolol given in claudia
--- NOTE | 2020-07-18 00:52 | NUR ---
BREAK RN: DR MCGILL HAS SEEN PATIENT. VS STABLE. PT RESTING IN ROOM. NO ACUTE DISRESS NOTED. VS STABLE. WILL CONTINUE TO MONITOR WHILE PRIMARY RN IS ON BREAK.
[2020-07-18] MEDS ORDERED: SODIUM CHLORIDE FLUSH 10ML SYR IVF ONE (01:00)
[2020-07-18] MEDS ORDERED: PROMETHAZINE 25 MG/ML, 1ML IM ONE (01:00)
[2020-07-18 01:11] LABS: BASOPHILS # (AUTO) 0.02 x10^3/uL (0-0.1); BASOPHILS % (AUTO) 0 % (0-1); EOSINOPHILS % (AUTO) 0 % (1-7); LYMPHOCYTES # (AUTO) 0.42 x10^3/uL (1-3.4); LYMPHOCYTES % (AUTO) 7 % (22-44); MD NO; MEAN CORPUSCULAR HEMOGLOBIN 28.2 pg (27.0-34.8); MEAN CORPUSCULAR HGB CONC 32.1 g/dL (32.4-35.8); MEAN CORPUSCULAR VOLUME 87.8 fL (80-100); MEAN PLATELET VOLUME 8.9 fL (7.4-10.4); MONOCYTES # (AUTO) 0.25 x10^3/uL (0.2-0.8); MONOCYTES % (AUTO) 4 % (2-9); NEUTROPHILS # (AUTO) 5.74 x10^3/uL (1.8-6.8); NEUTROPHILS % (AUTO) 89 % (42-75); PLATELET COUNT 199 x10^3/uL (130-400); RED BLOOD COUNT 4.68 x10^6/uL (3.82-5.3); RED CELL DISTRIBUTION WIDTH 17.9 % (9.6-15.2)
--- NOTE | 2020-07-18 01:18 | NUR ---
REPORT RECEIVED FROM KRISTAN CONNORS
[2020-07-18 01:22] LABS: ALANINE AMINOTRANSFERASE 80 U/L (12-78); ALBUMIN 3.3 g/dL (3.4-5.0); ANION GAP 12 mmol/L (5-15); CALCIUM 9.1 mg/dL (8.5-10.1); CHLORIDE 98 mmol/L (98-107)
[2020-07-18 01:25] LABS: ALKALINE PHOSPHATASE 187 U/L (45-117); BILIRUBIN,TOTAL 0.7 mg/dL (0.2-1.0); CREATININE 5.51 mg/dL (0.55-1.02); TOTAL PROTEIN 8.7 g/dL (6.4-8.2)
[2020-07-18] MEDS ORDERED: SODIUM CHLORIDE FLUSH 10ML SYR IVF PRN (02:30)
[2020-07-18] MEDS ORDERED: TRAZODONE 50MG TABLET PO PRN (02:30)
[2020-07-18] MEDS ORDERED: morphine SULFATE 10 MG/ML, 1ML IVPush PRN (02:30)
[2020-07-18] MEDS ORDERED: DOCUSATE 100 MG CAPSULE PO PRN (02:30)
[2020-07-18] MEDS ORDERED: hydrALAzine 20 MG/ML, 1ML IVPush PRN (02:30)
[2020-07-18] MEDS ORDERED: hydrALAzine 20 MG/ML, 1ML ONE (02:48)
--- NOTE | 2020-07-18 02:57 | NUR ---
PATIENT'S BLOOD PRESSURE IS HIGH, ORDERED OBTAINED AND ADMINISTERED HYDRALAZINE 10MG IVP PER MAR. WILL ASSESS BLOOD PRESSURE PRIOR TO ADMISSION.
[2020-07-18] MEDS ORDERED: DEXTROSE 50%, 50ML SYRINGE IVPush PRN (03:00)
[2020-07-18] MEDS ORDERED: GLUCAGON 1 MG IM PRN (03:00)
[2020-07-18] MEDS ORDERED: DEXTROSE 4 GM TAB.CHEW PO PRN (03:00)
[2020-07-18] MEDS ORDERED: LABETALOL 5MG/ML, 20ML IVPush STA (03:33)
[2020-07-18] MEDS ORDERED: LABETALOL 5MG/ML, 20ML ONE (03:36)
--- NOTE | 2020-07-18 03:44 | NUR ---
CALLED MD HATFIELD REGARDING PATIENT'S BLOOD PRESSURE AND LACK OF RESPONSE TO HYDRALAZINE ORDER. VERBAL ORDER FOR 10MG LABETOLOL IVP ONCE. PATIENT UPDATED ON PLAN OF CARE. WILL CONTINUE TO MONITOR.
--- NOTE | 2020-07-18 03:54 | NUR ---
PATIENT'S BLOOD PRESSURE NOT RESPONDING TO MEDICATION. WILL ALLOW TWO MORE VITAL SIGN RECORDS PRIOR TO NOTIFYING MD HATFIELD.
--- NOTE | 2020-07-18 04:17 | NUR ---
PATIENT'S BLOOD PRESSURE HAS IMPROVED, SEE VITAL SIGN DOCUMENTATION. REPORT CALLED TO KRISTAN EMERY, NO FURTHER NEEDS FROM PATIENT. MEDICATION RECONCILE COMPLETED. PATIENT TRANSPORTED VIA GURNEY WITH TECH AND MONITOR. ALL OF PATIENT'S BELONGINGS WERE TAKEN WITH PATIENT TO FLOOR.
[2020-07-18] MEDS: METOPROLOL TARTRATE 50 MG TAB PO SCH ×2 (05:14→17:26)
[2020-07-18] MEDS: ASPIRIN 81 MG TABLET EC PO SCH (05:14)
[2020-07-18] MEDS: HEPARIN 5,000 UNITS/ML, 1ML SQ SCH ×3 (05:15→17:26)
[2020-07-18] MEDS: OMEPRAZOLE 20 MG CAPSULE.DR PO SCH (05:15)
[2020-07-18 05:38] LABS: ALBUMIN 3.4 g/dL (3.4-5.0); BILIRUBIN, DIRECT 0.3 mg/dL (0.1-0.2)
[2020-07-18 05:39] LABS: BILIRUBIN,INDIRECT 0.4 mg/dL (0.0-2.0); BILIRUBIN,TOTAL 0.7 mg/dL (0.2-1.0); TOTAL PROTEIN 8.5 g/dL (6.4-8.2)
[2020-07-18] MEDS ORDERED: AMLODIPINE 5 MG TABLET ONE (06:12)
[2020-07-18] MEDS: AMLODIPINE 5 MG TABLET PO SCH (06:14)
[2020-07-18 06:25] VITALS: BP 185/81
[2020-07-18 07:14] VITALS: BP 186/94
[2020-07-18] MEDS ORDERED: MAALOX/HYOSCYAMINE/LIDOCAINE 45 ML BTL PO PRN (08:30)
[2020-07-18] MEDS: SODIUM CHLORIDE FLUSH 10ML SYR IVF SCH ×2 (09:00→21:20)
[2020-07-18] MEDS: LISINOPRIL 10 MG TABLET PO SCH (09:54)
[2020-07-18] MEDS: METOCLOPRAMIDE 10MG TABLET PO SCH ×2 (09:55→21:21)
[2020-07-18] MEDS: SEVELAMER CARBONATE 800MG TAB PO SCH ×2 (09:55→17:26)
[2020-07-18] MEDS: INSULIN NPH HUMAN 100 UNIT/ML, 3ML VIAL SQ-INSULIN SCH ×2 (10:32→21:21)
[2020-07-18] MEDS: INSULIN LISPRO 100 UNITS/ML, PEN SQ-INSULIN SCH ×4 (10:37→21:00)
[2020-07-18 14:40] VITALS: BP 142/72
[2020-07-18] MEDS: ONDANSETRON 2MG/ML, 2ML IVPush PRN ×2 (17:26→23:21)
[2020-07-18 19:34] VITALS: BP 156/72
[2020-07-18] MEDS ORDERED: ATORVASTATIN 10 MG TABLET PO SCH (21:00)
[2020-07-19] MEDS: HEPARIN 5,000 UNITS/ML, 1ML SQ SCH ×2 (02:43→09:52)
[2020-07-19 02:46] VITALS: BP 119/65
[2020-07-19 05:38] LABS: BASOPHILS % (AUTO) 0 % (0-1); EOSINOPHILS # (AUTO) 0.05 x10^3/uL (0-0.4); EOSINOPHILS % (AUTO) 1 % (1-7); LYMPHOCYTES # (AUTO) 0.57 x10^3/uL (1-3.4); LYMPHOCYTES % (AUTO) 6 % (22-44); MD NO; MEAN CORPUSCULAR HEMOGLOBIN 28.1 pg (27.0-34.8); MEAN CORPUSCULAR HGB CONC 32.1 g/dL (32.4-35.8); MEAN CORPUSCULAR VOLUME 87.7 fL (80-100); MEAN PLATELET VOLUME 8.7 fL (7.4-10.4); MONOCYTES # (AUTO) 0.55 x10^3/uL (0.2-0.8); MONOCYTES % (AUTO) 6 % (2-9); NEUTROPHILS % (AUTO) 88 % (42-75); PLATELET COUNT 238 x10^3/uL (130-400); RED BLOOD COUNT 4.42 x10^6/uL (3.82-5.3); RED CELL DISTRIBUTION WIDTH 17.9 % (9.6-15.2)
[2020-07-19 05:43] LABS: ALBUMIN 3.2 g/dL (3.4-5.0); ANION GAP 9 mmol/L (5-15); CALCIUM 9.1 mg/dL (8.5-10.1); CHLORIDE 98 mmol/L (98-107)
[2020-07-19 05:46] LABS: ALANINE AMINOTRANSFERASE 61 U/L (12-78); ALKALINE PHOSPHATASE 156 U/L (45-117); BILIRUBIN,TOTAL 0.6 mg/dL (0.2-1.0); CREATININE 4.17 mg/dL (0.55-1.02)
[2020-07-19] MEDS: ASPIRIN 81 MG TABLET EC PO SCH (06:00)
[2020-07-19] MEDS: METOPROLOL TARTRATE 50 MG TAB PO SCH ×2 (06:08→16:15)
[2020-07-19] MEDS: OMEPRAZOLE 20 MG CAPSULE.DR PO SCH (06:08)
[2020-07-19] MEDS: INSULIN LISPRO 100 UNITS/ML, PEN SQ-INSULIN SCH ×3 (07:33→16:15)
[2020-07-19 07:59] VITALS: BP 184/88
[2020-07-19] MEDS: SEVELAMER CARBONATE 800MG TAB PO SCH ×2 (08:01→16:16)
[2020-07-19] MEDS: LISINOPRIL 10 MG TABLET PO SCH (08:02)
[2020-07-19] MEDS: METOCLOPRAMIDE 10MG TABLET PO SCH (08:02)
[2020-07-19] MEDS: SODIUM CHLORIDE FLUSH 10ML SYR IVF SCH (08:02)
[2020-07-19] MEDS: AMLODIPINE 5 MG TABLET PO SCH (08:02)
[2020-07-19] MEDS ORDERED: AMLODIPINE 10 MG TAB PO SCH (09:00)
[2020-07-19] MEDS ORDERED: INSULIN NPH HUMAN 100 UNIT/ML, 3ML VIAL SQ-INSULIN SCH (09:00)
[2020-07-19] MEDS ORDERED: AMLODIPINE 5 MG TABLET PO ONE (09:00)
[2020-07-19] MEDS: ONDANSETRON 2MG/ML, 2ML IVPush PRN (10:00)
[2020-07-19] MEDS ORDERED: ONDANSETRON ODT 4 MG PO PRN (11:30)
[2020-07-19 11:33] VITALS: BP 163/88
[2020-07-19 12:48] VITALS: BP 142/66
[2020-07-19] MEDS ORDERED: METO50TA82 PO ×2 (13:33→13:44)
[2020-07-19] MEDS ORDERED: AMLO10TA8 PO ×2 (13:33→13:44)
[2020-07-19] MEDS ORDERED: SEVE800T8 PO ×2 (13:33→13:44)
[2020-07-19] MEDS ORDERED: ONDA4TAB7 PO (13:33)
[2020-07-19] MEDS ORDERED: ONDA4TAB13 PO (13:44)
== END 2020-07-19 17:29 | disposition home or self-care (01) ==
LOC: ED 07-18 01:20 → INTOOBSV 07-18 02:41 → EDIP 07-18 02:41 → 5SO 07-18 04:19 → 4WST 07-18 16:38
PROVIDERS: ADMIT Student in an Organized Health Care Education/Training Program; ATTEND Student in an Organized Health Care Education/Training Program
DX: I16.0 Hypertensive urgency (principal); I48.20 Chronic atrial fibrillation, unspecified; E11.621 Type 2 diabetes mellitus with foot ulcer; E11.22 Type 2 diabetes mellitus with diabetic chronic kidney disease; E11.65 Type 2 diabetes mellitus with hyperglycemia; E78.5 Hyperlipidemia, unspecified; I12.0 Hypertensive chronic kidney disease with stage 5 chronic kidney disease or end stage renal disease; N18.6 End stage renal disease; R74.0 Nonspecific elevation of levels of transaminase and lactic acid dehydrogenase [LDH]; Z79.4 Long term (current) use of insulin; R11.2 Nausea with vomiting, unspecified; K21.9 Gastro-esophageal reflux disease without esophagitis; Z79.82 Long term (current) use of aspirin; D63.1 Anemia in chronic kidney disease; I70.0 Atherosclerosis of aorta; K52.9 Noninfective gastroenteritis and colitis, unspecified; Z99.2 Dependence on renal dialysis
CPT/HCPCS: 36415; 80053; 80076; 82947; 82962; 83036; 83735; 85025; 86705; 86706; 87340; 93005; 93306; 96372; 96374; 96375; 96376; 99285; G0378; J0360; J1644; J1815; J2405; Q0162; 90935